=== PATIENT | male | born 1975 | race Asian ===

== ENCOUNTER 2024-03-01 15:23 | Inpatient (IN) | payer OTHER ==
[~2024-03-01] VITALS: Ht 170.2 cm; Wt 75.3 kg
[2024-03-01 15:31] VITALS: O2SAT 100
[2024-03-01 16:34] LABS: BASOPHILS % 0.7 % (0.0-2.0); HEMATOCRIT. 23.1 % (42.0-52.0); HEMOGLOBIN. 7.5 g/dL (14.0-18.0); MEAN CORPUSCULAR HEMOGLOBIN 30.5 pg (28.0-32.0); MEAN CORPUSCULAR HGB CONC 32.7 g/dL (31.0-37.0); MEAN CORPUSCULAR VOLUME 93.4 fL (80.0-94.0); MEAN PLATELET VOLUME 6.7 fl (7.4-10.4); MONOCYTES % 8.9 % (2.0-8.0); NEUTROPHILS % 67.4 % (40.0-76.0); PLATELET 324 x1000/uL (130-400); RED BLOOD CELL COUNT 2.47 mill/uL (4.7-6.1); WHITE BLOOD COUNT 7.8 x1000/uL (4.5-11.0)
[2024-03-01 16:41] LABS: CHLORIDE 111 mEq/L (98-107); SODIUM 143 mEq/L (136-145)
[2024-03-01 16:42] LABS: CALCIUM 6.2 mg/dL (8.7-10.4); CARBON DIOXIDE 24 mEq/L (21-32)
[2024-03-01 16:45] LABS: D-DIMER 1.01 mg/L FEU (<0.50); PARTIAL THROMBOPLASTIN TIME 28.2 sec (23.4-31.0); PROTHROMBIN TIME 11.3 sec (9.6-11.0)
[2024-03-01 16:47] LABS: GLUCOSE 166 mg/dL (70-105); UREA NITROGEN BLOOD 76 mg/dL (9-23)
[2024-03-01 16:49] LABS: ALANINE AMINOTRANSFERASE 18 IU/L (10-49); ALBUMIN 2.4 g/dL (3.2-4.8); ASPARTATE AMINOTRANSFERASE 33 IU/L (<34); BILIRUBIN TOTAL < 0.2 mg/dL (0.1-1.0); PROTEIN TOTAL 4.6 g/dL (6.0-8.3)
[2024-03-01 17:21] LABS: TROPONIN I HIGH SENSITIVITY 98 ng/L (3.0-53)
[2024-03-01] MEDS: FUROSEMIDE 40MG/4ML VIAL IVP ONE (18:06)
[2024-03-01] MEDS ORDERED: IPRATROPIUM/ALBUTEROL 0.5-3(2.5)MG/3ML NEB NEB PRN (18:45)
[2024-03-01] MEDS ORDERED: ONDANSETRON HCL 4MG/2ML INJ IV PRN (18:45)
[2024-03-01] MEDS ORDERED: NALOXONE HCL 0.4MG/ML VIAL IV PRN (19:00)
[2024-03-01 19:07] LABS: IRON 19 ug/dL (65-175)
[2024-03-01 19:08] LABS: TRIGLYCERIDE 199 mg/dL (0-150)
[2024-03-01 19:09] LABS: LDL CHOLESTEROL 103 mg/dL (5-100)
[2024-03-01 19:10] LABS: CHOLESTEROL 169 mg/dL (<200); HDL CHOLESTEROL 34 mg/dL (>55); TOTAL IRON BINDING CAPACITY 553 ug/dl (250-425)
[2024-03-01 20:00] VITALS: BP 160/95; PULSE 82; RESP 18; TEMP 35.72508; TEMP 35.7508; O2SAT 100
[2024-03-01] MEDS: CLONIDINE 0.1MG TABLET PO PRN (21:28)
[2024-03-01] MEDS: HEPARIN 5000 UNITS/ML VIAL SUBCUT SCH (21:28)
[2024-03-01] MEDS: FUROSEMIDE 40MG/4ML VIAL IVP SCH (23:33)
[2024-03-02] VITALS (15 sets, daily range): BP systolic 129–180; BP diastolic 75–113; PULSE 82–100; RESP 16–20; TEMP 36.22512–36.78072; O2SAT 96–100
[2024-03-02] MEDS ORDERED: FUROSEMIDE 40MG/4ML VIAL IVP SCH (09:00)
[2024-03-02] MEDS: PANTOPRAZOLE SODIUM 40 MG/VIAL IV SCH (09:01)
[2024-03-02] MEDS: LIDOCAINE HCL 1% 10 MG/ML 10ML VIAL ONE (09:15)
[2024-03-02] MEDS: FOLIC ACID/VITAMIN B COMP W-C TABLET PO SCH (09:26)
[2024-03-02 09:48] LABS: BASOPHILS % 0.5 % (0.0-2.0); EOSINOPHILS % 3.8 % (0.0-5.0); HEMATOCRIT. 27.3 % (42.0-52.0); LYMPHOCYTES % 16.5 % (20.0-50.0); MEAN CORPUSCULAR HEMOGLOBIN 30.5 pg (28.0-32.0); MEAN CORPUSCULAR HGB CONC 32.5 g/dL (31.0-37.0); MEAN CORPUSCULAR VOLUME 93.8 fL (80.0-94.0); MONOCYTES % 7.8 % (2.0-8.0); NEUTROPHILS % 71.4 % (40.0-76.0); PLATELET 391 x1000/uL (130-400); RED BLOOD CELL COUNT 2.91 mill/uL (4.7-6.1); RED CELL DISTRIBUTION WIDTH 15.2 % (11.6-14.6); WHITE BLOOD COUNT 9.8 x1000/uL (4.5-11.0)
[2024-03-02 09:52] LABS: HEMOGLOBIN. 8.9 g/dL (14.0-18.0)
[2024-03-02 10:08] LABS: CREATINE KINASE MB FRACTION 22.8 ng/mL (0.5-3.6)
[2024-03-02 10:09] LABS: CALCIUM 6.2 mg/dL (8.7-10.4)
[2024-03-02 10:32] LABS: CREATININE 9.4 mg/dL (0.6-1.3)
[2024-03-02] MEDS: CALCIUM ACETATE 667MG CAPSULE PO SCH (11:38)
[2024-03-02] MEDS ORDERED: DEXTROSE 50% WATER 50ML SYRINGE IV PRN (13:15)
[2024-03-02] MEDS ORDERED: APIX2.5T PO (13:17)
[2024-03-02] MEDS ORDERED: AMLO5TAB88 PO (13:17)
[2024-03-02] MEDS: MANNITOL 12.5G (25%) VIAL 50ML IV NR (13:30)
[2024-03-02] MEDS: ASPIRIN 81MG TABLET PO SCH (14:30)
[2024-03-02] MEDS: AMLODIPINE 5MG TABLET PO SCH (14:31)
[2024-03-02] MEDS: BLOOD SUGAR DIAGNOSTIC STRIP TEST SCH (16:40)
[2024-03-02] MEDS: INSULIN LISPRO 100 UNITS/ML SUBCUT SCH (17:10)
[2024-03-02] MEDS: ATORVASTATIN CALCIUM 40MG TABLET PO SCH (20:42)
[2024-03-02] MEDS: APIXABAN 2.5 MG TABLET PO SCH (20:43)
[2024-03-03] VITALS (15 sets, daily range): BP systolic 129–203; BP diastolic 69–124; PULSE 74–110; RESP 15–20; TEMP 36.33624–36.78072; O2SAT 97–100
[2024-03-03] MEDS: ACETAMINOPHEN 325MG TABLET PO PRN (01:24)
[2024-03-03 04:18] LABS: CLARITY URINE CLEAR (CLEAR); COLOR URINE YELLOW (YELLOW); GLUCOSE URINE 2+ (NEGATIVE); KETONES URINE TRACE (NEGATIVE); LEUKOCYTE ESTERASE URINE NEGATIVE (NEGATIVE); NITRITE URINE NEGATIVE (NEGATIVE); OCCULT BLOOD URINE 1+ (NEGATIVE); PH URINE 7.5 (4.5-8.0); PROTEIN URINE 4+ (NEGATIVE); SPECIFIC GRAVITY URINE 1.016 (1.005-1.030); UROBILINOGEN URINE 0.2 E.U./dL (0.2-1.0)
[2024-03-03 04:34] LABS: *AMPHETAMINES SCREEN URINE NEGATIVE (NEGATIVE); *BARBITURATES SCREEN URINE NEGATIVE (NEGATIVE); *BENZODIAZEPINES SCREEN URINE NEGATIVE (NEGATIVE); *COCAINE SCREEN URINE NEGATIVE (NEGATIVE)
[2024-03-03 04:35] LABS: CANNABINOID URINE SCREEN NEGATIVE (NEGATIVE); ECSTASY MDMA SCREEN URINE NEGATIVE (NEGATIVE); METHADONE URINE SCREEN NEGATIVE (NEGATIVE); OPIATES URINE SCREEN NEGATIVE (NEGATIVE); PHENCYCLIDINE URINE SCREEN NEGATIVE (NEGATIVE)
[2024-03-03 05:42] LABS: SQUAMOUS EPITHELIAL CELL URINE NONE SEEN /lpf (RARE/1+)
[2024-03-03 05:43] LABS: BACTERIA URINE NONE SEEN; RBC URINE 0-2 /hpf (0-2); WBC URINE 0-2 /hpf (0-2)
[2024-03-03 11:40] LABS: BASOPHILS % 0.6 % (0.0-2.0); EOSINOPHILS % 4.8 % (0.0-5.0); HEMATOCRIT. 28.1 % (42.0-52.0); HEMOGLOBIN. 9.4 g/dL (14.0-18.0); LYMPHOCYTES % 16.8 % (20.0-50.0); MEAN CORPUSCULAR HEMOGLOBIN 30.5 pg (28.0-32.0); MEAN CORPUSCULAR HGB CONC 33.3 g/dL (31.0-37.0); MEAN CORPUSCULAR VOLUME 91.8 fL (80.0-94.0); MEAN PLATELET VOLUME 6.8 fl (7.4-10.4); MONOCYTES % 7.2 % (2.0-8.0); NEUTROPHILS % 70.6 % (40.0-76.0); PLATELET 414 x1000/uL (130-400); RED BLOOD CELL COUNT 3.06 mill/uL (4.7-6.1); RED CELL DISTRIBUTION WIDTH 14.5 % (11.6-14.6); WHITE BLOOD COUNT 8.8 x1000/uL (4.5-11.0)
[2024-03-03] MEDS: POLYVINYL ALCOHOL OPHTH DROPS 15ML BOTHEYE PRN (14:51)
[2024-03-03 17:15] LABS: POTASSIUM 4.2 mEq/L (3.5-5.1)
[2024-03-03 17:16] LABS: CALCIUM 6.4 mg/dL (8.7-10.4)
[2024-03-03 17:37] LABS: CREATININE 7.1 mg/dL (0.6-1.3)
[2024-03-04] VITALS (12 sets, daily range): BP systolic 124–200; BP diastolic 65–116; PULSE 89–110; RESP 15–20; TEMP 36.16956–37.00296; O2SAT 97–100
[2024-03-04] MEDS: FAMOTIDINE 20MG/2ML VIAL IV SCH (09:50)
[2024-03-04 22:34] LABS: HEPATITIS B SURFACE ANTIGEN NEGATIVE (Negative)
[2024-03-04 22:55] LABS: HEPATITIS A AB IGM NEGATIVE (Negative); HEPATITIS B CORE AB IGM NEGATIVE (Negative)
[2024-03-04 22:56] LABS: HEPATITIS C AB NON REACTIVE (Neg) (Negative)
[2024-03-05] VITALS: BP 163/101; PULSE 99; RESP 22; TEMP 36.3918; O2SAT 98
[2024-03-05 04:00] VITALS: BP 150/92; PULSE 96; RESP 18; TEMP 36.28068; O2SAT 97
[2024-03-05 08:00] VITALS: BP 170/105; PULSE 99; RESP 20; TEMP 36.50292; O2SAT 98
[2024-03-05 12:00] VITALS: BP 155/65; PULSE 98; RESP 20; TEMP 36.44736; O2SAT 98
[2024-03-05 16:00] VITALS: BP 139/67; PULSE 97; RESP 18; TEMP 36.61404; O2SAT 97
[2024-03-05 20:00] VITALS: BP 122/61; PULSE 94; RESP 17; TEMP 36.89184; O2SAT 98
[2024-03-06] VITALS: BP 125/68; PULSE 76; RESP 18; TEMP 36.78072; O2SAT 98
[2024-03-06 04:00] VITALS: BP 122/78; PULSE 85; RESP 17; TEMP 36.3918; O2SAT 98
[2024-03-06] MEDS: HYDROCODONE/ACETAMINOPHEN 5/325MG TABLET PO PRN (06:30)
[2024-03-06 08:00] VITALS: BP 175/108; PULSE 97; RESP 18; TEMP 36.44736; O2SAT 96
[2024-03-06 12:00] VITALS: BP 155/97; PULSE 98; RESP 19; TEMP 36.3918; O2SAT 98
[2024-03-06 16:00] VITALS: BP 172/111; PULSE 98; RESP 19; TEMP 36.3918; O2SAT 98
[2024-03-06 20:00] VITALS: BP 141/88; PULSE 95; RESP 18; TEMP 36.50292; O2SAT 95
[2024-03-07] VITALS (17 sets, daily range): BP systolic 148–172; BP diastolic 90–105; PULSE 94–107; RESP 16–20; TEMP 36.33624–36.78072; O2SAT 96–100
[2024-03-08] VITALS: BP 165/105; PULSE 104; RESP 19; TEMP 36.72516; O2SAT 97
[2024-03-08 04:00] VITALS: BP 163/101; PULSE 102; RESP 18; TEMP 36.3918; O2SAT 99
[2024-03-08 07:08] LABS: BASOPHILS % 0.4 % (0.0-2.0); EOSINOPHILS % 3.5 % (0.0-5.0); HEMATOCRIT. 25.6 % (42.0-52.0); HEMOGLOBIN. 8.5 g/dL (14.0-18.0); LYMPHOCYTES % 16.7 % (20.0-50.0); MEAN CORPUSCULAR HEMOGLOBIN 29.8 pg (28.0-32.0); MEAN CORPUSCULAR VOLUME 90.2 fL (80.0-94.0); MEAN PLATELET VOLUME 6.6 fl (7.4-10.4); MONOCYTES % 7.6 % (2.0-8.0); NEUTROPHILS % 71.8 % (40.0-76.0); PLATELET 374 x1000/uL (130-400); RED BLOOD CELL COUNT 2.84 mill/uL (4.7-6.1); RED CELL DISTRIBUTION WIDTH 14.1 % (11.6-14.6)
[2024-03-08 07:24] LABS: CHLORIDE 108 mEq/L (98-107); POTASSIUM 4.5 mEq/L (3.5-5.1); SODIUM 141 mEq/L (136-145)
[2024-03-08 07:25] LABS: CALCIUM 7.4 mg/dL (8.7-10.4); CARBON DIOXIDE 27 mEq/L (21-32)
[2024-03-08 07:29] LABS: GLUCOSE 134 mg/dL (70-105)
[2024-03-08 07:30] LABS: UREA NITROGEN BLOOD 35 mg/dL (9-23)
[2024-03-08 07:32] LABS: PHOSPHORUS 4.8 mg/dL (2.5-4.9)
[2024-03-08 08:00] VITALS: BP 181/111; PULSE 105; RESP 20; TEMP 36.50292; O2SAT 100
[2024-03-08 08:11] LABS: CREATININE 6.8 mg/dL (0.6-1.3)
[2024-03-08] MEDS ORDERED: NALOXONE HCL 0.4MG/ML VIAL IV PRN (10:45)
[2024-03-08 12:00] VITALS: BP 156/95; PULSE 101; RESP 19; TEMP 36.61404; O2SAT 98
[2024-03-08] MEDS ORDERED: LIDOCAINE HCL/EPINEPHRINE 1%-EPI 1:100,000 20ML VIAL ONE (12:24)
[2024-03-08] MEDS ORDERED: LIDOCAINE HCL 1% 10 MG/ML 10ML VIAL ONE (12:24)
[2024-03-08] MEDS: MORPHINE SULFATE 2 MG/ML INJ (NOT FOR IM USE) IV PRN (12:41)
[2024-03-08] MEDS ORDERED: HEPARIN 1000 UNITS/ML 10ML ONE (13:15)
[2024-03-08] MEDS: MAGNESIUM 2 G PREMIX 50 ML IV NR (14:20)
[2024-03-08 16:00] VITALS: BP 152/96; PULSE 100; RESP 19; TEMP 36.50292; O2SAT 100
[2024-03-08 20:00] VITALS: BP 153/98; PULSE 98; RESP 18; TEMP 36.61404; O2SAT 100
[2024-03-09] VITALS (10 sets, daily range): BP systolic 144–189; BP diastolic 53–103; PULSE 84–101; RESP 18–20; TEMP 36.44736–36.78072; O2SAT 97–100
[2024-03-09] MEDS ORDERED: LIP40 PO (10:38)
[2024-03-09] MEDS ORDERED: CALC667C PO (10:38)
[2024-03-09] MEDS ORDERED: ASPI-1160 PO (10:38)
[2024-03-09] MEDS ORDERED: FOLI0.8T53 PO (10:38)
[2024-03-09] MEDS: DOCUSATE SODIUM SUGAR FREE 100MG/10ML UDC NG SCH (18:42)
[2024-03-10] VITALS: BP 136/84; PULSE 96; RESP 20; TEMP 36.72516; O2SAT 98
[2024-03-10 08:00] VITALS: BP 167/103; PULSE 115; RESP 20; TEMP 36.3918; O2SAT 98
[2024-03-10] MEDS: AMLODIPINE 10MG TABLET PO SCH (09:50)
[2024-03-10 12:00] VITALS: BP 181/111; PULSE 126; RESP 18; TEMP 36.33624; O2SAT 95
[2024-03-10 13:52] LABS: BASOPHILS % 0.2 % (0.0-2.0); EOSINOPHILS % 1.7 % (0.0-5.0); HEMATOCRIT. 32.6 % (42.0-52.0); HEMOGLOBIN. 10.4 g/dL (14.0-18.0); LYMPHOCYTES % 7.1 % (20.0-50.0); MEAN CORPUSCULAR HEMOGLOBIN 29.1 pg (28.0-32.0); MEAN PLATELET VOLUME 6.3 fl (7.4-10.4); MONOCYTES % 4.8 % (2.0-8.0); NEUTROPHILS % 86.2 % (40.0-76.0); PLATELET 426 x1000/uL (130-400); RED BLOOD CELL COUNT 3.58 mill/uL (4.7-6.1); RED CELL DISTRIBUTION WIDTH 14.2 % (11.6-14.6); WHITE BLOOD COUNT 17.6 x1000/uL (4.5-11.0)
[2024-03-10 14:33] LABS: POTASSIUM 4.7 mEq/L (3.5-5.1)
[2024-03-10 14:42] LABS: CREATININE 6.9 mg/dL (0.6-1.3)
[2024-03-10] MEDS: VANCOMYCIN 1.25GM PMX (XELLIA) 250 ML IV NR (15:00)
[2024-03-10 16:00] VITALS: BP 128/79; PULSE 110; RESP 20; TEMP 38.50308; O2SAT 95
[2024-03-10] MEDS: SODIUM CHLORIDE 0.9% 250 ML IV NR (19:07)
[2024-03-10 20:00] VITALS: BP 130/77; PULSE 105; RESP 20; TEMP 37.11408; O2SAT 97
[2024-03-10] MEDS: PIPERACILLIN/TAZO 3.375G/100ML 100 ML IV SCH (20:28)
[2024-03-11] VITALS (12 sets, daily range): BP systolic 105–137; BP diastolic 65–86; PULSE 71–116; RESP 16–20; TEMP 36.6696–38.00304; O2SAT 89–99
[2024-03-11] MEDS ORDERED: VANCOMYCIN 500MG PREMIX 100 ML IV SCH (11:00)
[2024-03-11] MEDS ORDERED: SODIUM CHLORIDE 0.9% 250 ML IV ONE (19:00)
[2024-03-12] VITALS: BP 115/73; PULSE 108; RESP 20; TEMP 36.72516; O2SAT 99
[2024-03-12 04:00] VITALS: BP 123/74; PULSE 104; RESP 18; TEMP 36.22512; O2SAT 100
[2024-03-12] MEDS ORDERED: LIDOCAINE HCL 1% 10 MG/ML 10ML VIAL ONE (07:51)
[2024-03-12 08:00] VITALS: BP 123/76; PULSE 108; RESP 18; TEMP 36.50292; O2SAT 100
[2024-03-12 08:48] LABS: POTASSIUM 4.4 mEq/L (3.5-5.1)
[2024-03-12 08:49] LABS: CALCIUM 7.8 mg/dL (8.7-10.4)
[2024-03-12 08:51] LABS: BASOPHILS % 0.3 % (0.0-2.0); EOSINOPHILS % 1.6 % (0.0-5.0); HEMATOCRIT. 26.8 % (42.0-52.0); HEMOGLOBIN. 8.8 g/dL (14.0-18.0); LYMPHOCYTES % 9.5 % (20.0-50.0); MEAN CORPUSCULAR HGB CONC 32.9 g/dL (31.0-37.0); MEAN CORPUSCULAR VOLUME 91.3 fL (80.0-94.0); MEAN PLATELET VOLUME 6.9 fl (7.4-10.4); MONOCYTES % 9.3 % (2.0-8.0); NEUTROPHILS % 79.3 % (40.0-76.0); PLATELET 330 x1000/uL (130-400); RED BLOOD CELL COUNT 2.93 mill/uL (4.7-6.1); WHITE BLOOD COUNT 14.9 x1000/uL (4.5-11.0)
[2024-03-12 08:59] LABS: CREATININE 7.3 mg/dL (0.6-1.3)
[2024-03-12 12:00] VITALS: BP 130/84; PULSE 106; RESP 18; TEMP 36.6696; O2SAT 99
[2024-03-12] MEDS: VANCOMYCIN 750MG PREMIX 150 ML IV SCH (14:17)
[2024-03-12 16:00] VITALS: BP 126/74; PULSE 101; RESP 19; TEMP 36.28068; O2SAT 98
[2024-03-12 20:00] VITALS: BP 144/92; PULSE 106; RESP 18; TEMP 36.3918; O2SAT 95
[2024-03-13] VITALS: BP 153/94; PULSE 105; RESP 20; TEMP 36.33624; O2SAT 94
[2024-03-13 04:00] VITALS: BP 144/87; PULSE 105; RESP 16; TEMP 36.72516; O2SAT 94
[2024-03-13 08:00] VITALS: BP 127/79; PULSE 100; RESP 17; TEMP 37.00296; O2SAT 99
[2024-03-13 10:34] LABS: BASOPHILS % 0.5 % (0.0-2.0); EOSINOPHILS % 3.6 % (0.0-5.0); HEMATOCRIT. 25.9 % (42.0-52.0); HEMOGLOBIN. 8.2 g/dL (14.0-18.0); LYMPHOCYTES % 15.3 % (20.0-50.0); MEAN CORPUSCULAR HEMOGLOBIN 28.9 pg (28.0-32.0); MEAN CORPUSCULAR HGB CONC 31.9 g/dL (31.0-37.0); MEAN CORPUSCULAR VOLUME 90.6 fL (80.0-94.0); MEAN PLATELET VOLUME 6.6 fl (7.4-10.4); MONOCYTES % 10.3 % (2.0-8.0); NEUTROPHILS % 70.3 % (40.0-76.0); PLATELET 365 x1000/uL (130-400); RED BLOOD CELL COUNT 2.85 mill/uL (4.7-6.1); RED CELL DISTRIBUTION WIDTH 14.2 % (11.6-14.6); WHITE BLOOD COUNT 11.6 x1000/uL (4.5-11.0)
[2024-03-13 10:41] LABS: POTASSIUM 4.5 mEq/L (3.5-5.1)
[2024-03-13 10:43] LABS: CALCIUM 7.9 mg/dL (8.7-10.4)
[2024-03-13 11:22] LABS: CREATININE 7.7 mg/dL (0.6-1.3)
[2024-03-13 12:00] VITALS: BP 129/78; PULSE 100; RESP 17; TEMP 37.05852; O2SAT 95
[2024-03-13 16:00] VITALS: BP 122/71; PULSE 102; RESP 17; TEMP 37.503; O2SAT 98
[2024-03-13 20:00] VITALS: BP 132/82; PULSE 105; RESP 19; TEMP 37.00296; O2SAT 96
[2024-03-14] VITALS (13 sets, daily range): BP systolic 136–153; BP diastolic 76–99; PULSE 103–111; RESP 16–20; TEMP 36.50292–37.11408; O2SAT 97–99
[2024-03-14] MEDS: DOCUSATE SODIUM SUGAR FREE 100MG/10ML UDC PO SCH (09:20)
[2024-03-14] MEDS: CEFAZOLIN 1000MG PREMIX 50 ML IV SCH (13:06)
[2024-03-15] VITALS: BP 148/90; PULSE 108; RESP 20; TEMP 36.61404; O2SAT 99
[2024-03-15 04:00] VITALS: BP 122/72; PULSE 106; RESP 18; TEMP 36.55848; O2SAT 96
[2024-03-15 08:00] VITALS: BP 159/97; PULSE 107; RESP 18; TEMP 36.3918; O2SAT 99
[2024-03-15 12:00] VITALS: BP 138/85; PULSE 104; RESP 18; TEMP 36.44736; O2SAT 96
== END 2024-03-15 16:10 | disposition home or self-care (01) | DRG 720 ==
LOC: ER 15:23 → 5WST 17:40 → EDBEDREQTM 17:45 → EDBEDREQ 17:45 → 7EST 03-02 10:34
PROVIDERS: ADMIT Internal Medicine; ATTEND Internal Medicine
PROC: 02HV33Z Insertion of Infusion Device into Superior Vena Cava, Percutaneous Approach (ICD-10-PCS; principal; 2024-03-02)
PROC: B518ZZA Fluoroscopy of Superior Vena Cava, Guidance (ICD-10-PCS; 2024-03-02)
PROC: B548ZZA Ultrasonography of Superior Vena Cava, Guidance (ICD-10-PCS; 2024-03-02)
PROC: 5A1D70Z Performance of Urinary Filtration, Intermittent, Less than 6 Hours Per Day (ICD-10-PCS; 2024-03-02)
PROC: 5A1D70Z Performance of Urinary Filtration, Intermittent, Less than 6 Hours Per Day (ICD-10-PCS; 2024-03-03)
PROC: 5A1D70Z Performance of Urinary Filtration, Intermittent, Less than 6 Hours Per Day (ICD-10-PCS; 2024-03-04)
PROC: 5A1D70Z Performance of Urinary Filtration, Intermittent, Less than 6 Hours Per Day (ICD-10-PCS; 2024-03-07)
PROC: 0JH63XZ Insertion of Tunneled Vascular Access Device into Chest Subcutaneous Tissue and Fascia, Percutaneous Approach (ICD-10-PCS; 2024-03-08)
PROC: 02HV33Z Insertion of Infusion Device into Superior Vena Cava, Percutaneous Approach (ICD-10-PCS; 2024-03-08)
PROC: B518ZZA Fluoroscopy of Superior Vena Cava, Guidance (ICD-10-PCS; 2024-03-08)
PROC: B548ZZA Ultrasonography of Superior Vena Cava, Guidance (ICD-10-PCS; 2024-03-08)
PROC: 5A1D70Z Performance of Urinary Filtration, Intermittent, Less than 6 Hours Per Day (ICD-10-PCS; 2024-03-09)
PROC: 5A1D70Z Performance of Urinary Filtration, Intermittent, Less than 6 Hours Per Day (ICD-10-PCS; 2024-03-11)
PROC: 5A1D70Z Performance of Urinary Filtration, Intermittent, Less than 6 Hours Per Day (ICD-10-PCS; 2024-03-14)
DX: A41.01 Sepsis due to Methicillin susceptible Staphylococcus aureus (principal); J96.01 Acute respiratory failure with hypoxia; I50.33 Acute on chronic diastolic (congestive) heart failure; N17.9 Acute kidney failure, unspecified; D63.1 Anemia in chronic kidney disease; E11.319 Type 2 diabetes mellitus with unspecified diabetic retinopathy without macular edema; N18.6 End stage renal disease; Z20.822 Contact with and (suspected) exposure to COVID-19; E11.22 Type 2 diabetes mellitus with diabetic chronic kidney disease; E87.5 Hyperkalemia; E78.00 Pure hypercholesterolemia, unspecified; I13.2 Hypertensive heart and chronic kidney disease with heart failure and with stage 5 chronic kidney disease, or end stage renal disease; Z90.5 Acquired absence of kidney; Z99.2 Dependence on renal dialysis; Z88.2 Allergy status to sulfonamides; Z87.441 Personal history of nephrotic syndrome
CPT/HCPCS: 36415; 36556; 36558; 36589; 71045; 76770; 77001; 80048; 80053; 80061; 80305; 81003; 82550; 82553; 82962; 83036; 83540; 83550; 83735; 83880; 84100; 84145; 84484; 85025; 85379; 86705; 86706; 86709; 86850; 86900; 87077; 87186; 87340; 87426; 87804; 90935; 93005; 93306; 93970; 93971; 99285; C1750; C1752; C1769; C1893; J0690; J1644; J1815; J1940; J2150; J2270; J2470; J2543; J3370; J3475; J3490

== ENCOUNTER 2024-06-27 18:12 | Inpatient (IN) | payer MEDICAID, OTHER ==
[~2024-06-27] VITALS: Ht 167.6 cm; Wt 63.5 kg
[~2024-06-27 18:12] MED LIST: AMLO5TAB88 PO; APIX2.5T PO; ASPI-1160 PO; CALC667C PO; FOLI0.8T53 PO; LIP40 PO
[2024-06-27 19:31] LABS: HEMATOCRIT. 26.1 % (42.0-52.0); HEMOGLOBIN. 8.3 g/dL (14.0-18.0); MEAN CORPUSCULAR HEMOGLOBIN 30.6 pg (28.0-32.0); MEAN CORPUSCULAR HGB CONC 31.9 g/dL (31.0-37.0); MEAN CORPUSCULAR VOLUME 95.7 fL (80.0-94.0); PLATELET 328 x1000/uL (130-400); RED BLOOD CELL COUNT 2.73 mill/uL (4.7-6.1); RED CELL DISTRIBUTION WIDTH 15.8 % (11.6-14.6); WHITE BLOOD COUNT 14.3 x1000/uL (4.5-11.0)
[2024-06-27 19:34] LABS: DIFFERENTIAL COMMENT 1
[2024-06-27 19:40] LABS: CHLORIDE 91 mEq/L (98-107); POTASSIUM 4.2 mEq/L (3.5-5.1); SODIUM 133 mEq/L (136-145)
[2024-06-27 19:41] LABS: CALCIUM 8.6 mg/dL (8.7-10.4); CARBON DIOXIDE 31 mEq/L (21-32)
[2024-06-27 19:46] LABS: UREA NITROGEN BLOOD 64 mg/dL (9-23)
[2024-06-27 20:24] LABS: CREATININE 4.9 mg/dL (0.6-1.3); GLUCOSE 350 mg/dL (70-105)
[2024-06-27 20:25] LABS: TROPONIN I HIGH SENSITIVITY 87 ng/L (3.0-53)
[2024-06-27] MEDS ORDERED: LISINOPRIL 40MG TABLET PO NR (21:30)
[2024-06-27] MEDS: LISINOPRIL 10MG TABLET PO NR (22:30)
[2024-06-27] MEDS: AMLODIPINE 5MG TABLET PO NR (22:30)
[2024-06-27 22:40] LABS: ANISOCYTOSIS 1+; PLATELET ESTIMATE NORMAL
[2024-06-28 08:00] VITALS: BP 147/89; PULSE 107; RESP 17; TEMP 36.5; O2SAT 96
[2024-06-28 08:10] VITALS: BP 128/64; PULSE 98; RESP 18; TEMP 36.4
[2024-06-28 11:36] VITALS: BP 136/78; PULSE 95; RESP 18; TEMP 36.4; O2SAT 98
[2024-06-28] MEDS: BLOOD SUGAR DIAGNOSTIC STRIP TEST SCH (11:43)
[2024-06-28] MEDS ORDERED: DEXTROSE 50% WATER 50ML SYRINGE IV PRN (11:45)
[2024-06-28] MEDS ORDERED: IPRATROPIUM/ALBUTEROL 0.5-3(2.5)MG/3ML NEB HHN PRN (11:45)
[2024-06-28] MEDS: AMLODIPINE 10MG TABLET PO SCH (11:51)
[2024-06-28] MEDS: INSULIN LISPRO 100 UNITS/ML SUBCUT SCH (11:53)
[2024-06-28 12:00] VITALS: BP 136/78; PULSE 95; RESP 18; TEMP 36.4; O2SAT 98
[2024-06-28] MEDS: ACETAMINOPHEN 325MG TABLET PO PRN (12:41)
[2024-06-28] MEDS: CEFTRIAXONE 1GM/50ML 50 ML IV SCH (13:21)
[2024-06-28] MEDS: VANCOMYCIN 1.5GM/250ML IV NR (13:21)
[2024-06-28 16:00] VITALS: BP 124/65; PULSE 85; RESP 17; RESP 18; TEMP 36.3; TEMP 36.4; O2SAT 96
[2024-06-28 20:00] VITALS: BP 150/92; PULSE 99; RESP 19; TEMP 35.8; O2SAT 100
[2024-06-28 23:32] LABS: INFLUENZA TYPE A Presumptive Negative (Pres. Neg.); INFLUENZA TYPE B Presumptive Negative (Pres. Neg.)
[2024-06-29] VITALS (10 sets, daily range): BP systolic 115–148; BP diastolic 66–84; PULSE 74–104; RESP 18–20; TEMP 36.1–36.6696; O2SAT 95–99
[2024-06-29] MEDS: DIPHENHYDRAMINE 50MG CAPSULE PO PRN (05:51)
[2024-06-29 09:53] LABS: CLARITY URINE CLEAR (CLEAR); COLOR URINE YELLOW (YELLOW); GLUCOSE URINE 2+ (NEGATIVE); KETONES URINE TRACE (NEGATIVE); LEUKOCYTE ESTERASE URINE NEGATIVE (NEGATIVE); NITRITE URINE NEGATIVE (NEGATIVE); OCCULT BLOOD URINE TRACE (NEGATIVE); PROTEIN URINE 4+ (NEGATIVE); SPECIFIC GRAVITY URINE 1.028 (1.005-1.030); UROBILINOGEN URINE 0.2 E.U./dL (0.2-1.0)
[2024-06-29 10:15] LABS: HYALINE CASTS URINE 0-5 /lpf; SQUAMOUS EPITHELIAL CELL URINE FEW /lpf (RARE/1+)
[2024-06-29 10:16] LABS: BACTERIA URINE NONE SEEN; RBC URINE 0-2 /hpf (0-2); WBC URINE 0-2 /hpf (0-2)
[2024-06-29 13:04] LABS: MEAN CORPUSCULAR HGB CONC 33.3 g/dL (31.0-37.0); MEAN CORPUSCULAR VOLUME 96.1 fL (80.0-94.0); PLATELET 301 x1000/uL (130-400); RED CELL DISTRIBUTION WIDTH 16.4 % (11.6-14.6); WHITE BLOOD COUNT 11.5 x1000/uL (4.5-11.0)
[2024-06-29 13:14] LABS: DIFFERENTIAL COMMENT 1
[2024-06-29 13:23] LABS: POTASSIUM 3.4 mEq/L (3.5-5.1)
[2024-06-29 13:24] LABS: CALCIUM 8.4 mg/dL (8.7-10.4)
[2024-06-29 13:29] LABS: CREATININE 4.8 mg/dL (0.6-1.3)
[2024-06-29 21:52] LABS: ANISOCYTOSIS 1+; PLATELET ESTIMATE NORMAL
[2024-06-30] VITALS (8 sets, daily range): BP systolic 104–147; BP diastolic 64–86; PULSE 73–104; RESP 18–19; TEMP 36.114–36.6; O2SAT 97–98
== END 2024-06-30 14:15 | disposition home or self-care (01) | DRG 720 ==
LOC: ER 18:12 → 6WST 22:03
PROVIDERS: ADMIT Internal Medicine; ATTEND Internal Medicine
PROC: 5A1D70Z Performance of Urinary Filtration, Intermittent, Less than 6 Hours Per Day (ICD-10-PCS; principal; 2024-06-29)
PROC: 5A1D70Z Performance of Urinary Filtration, Intermittent, Less than 6 Hours Per Day (ICD-10-PCS; 2024-06-30)
DX: A41.9 Sepsis, unspecified organism (principal); J96.00 Acute respiratory failure, unspecified whether with hypoxia or hypercapnia; I13.2 Hypertensive heart and chronic kidney disease with heart failure and with stage 5 chronic kidney disease, or end stage renal disease; N18.6 End stage renal disease; D63.1 Anemia in chronic kidney disease; E11.319 Type 2 diabetes mellitus with unspecified diabetic retinopathy without macular edema; E11.22 Type 2 diabetes mellitus with diabetic chronic kidney disease; Z20.822 Contact with and (suspected) exposure to COVID-19; D64.9 Anemia, unspecified; I50.9 Heart failure, unspecified; E78.00 Pure hypercholesterolemia, unspecified; Z99.2 Dependence on renal dialysis; Z88.2 Allergy status to sulfonamides
CPT/HCPCS: 36415; 71045; 80048; 80202; 81003; 82962; 84145; 84484; 85025; 87426; 87804; 90935; 93005; 99285; J0696; J1815; J3370; Q0163

== ENCOUNTER 2024-10-18 15:48 | Emergency (ER) | payer MEDICAID ==
[~2024-10-18] VITALS: Ht 177.8 cm; Wt 67.0 kg
[~2024-10-18 15:48] MED LIST changes: +AMLO10TA80 PO; -AMLO5TAB88 PO; +ATOR20TA65 PO; +BACL-141 PO; +CARV12.545 MT; +DAPA10TA PO; +FURO80TA3 PO; +HYDR-4001 PO; +INSU100I13 SQ; +INSU100I28 SQ; +LIDOCAINE 5% PATCH TOP; -LIP40 PO; +LORA10TA7 PO
[2024-10-18 15:58] VITALS: O2SAT 97
[2024-10-18 16:01] VITALS: BP 192/117; PULSE 102; RESP 20; TEMP 36.7; O2SAT 96
[2024-10-18 17:43] LABS: BASOPHILS % 0.5 % (0.0-2.0); EOSINOPHILS % 7.6 % (0.0-5.0); HEMATOCRIT. 29.4 % (42.0-52.0); HEMOGLOBIN. 9.4 g/dL (14.0-18.0); LYMPHOCYTES % 10.8 % (20.0-50.0); MEAN PLATELET VOLUME 7.3 fl (7.4-10.4); MONOCYTES % 9.7 % (2.0-8.0); NEUTROPHILS % 71.4 % (40.0-76.0); PLATELET 207 x1000/uL (130-400); RED BLOOD CELL COUNT 3.08 mill/uL (4.7-6.1); RED CELL DISTRIBUTION WIDTH 19.2 % (11.6-14.6)
[2024-10-18 18:01] LABS: UREA NITROGEN BLOOD 64.0 mg/dL (9-23)
[2024-10-18 18:24] LABS: CREATININE 6.7 mg/dL (0.6-1.3)
[2024-10-18] MEDS ORDERED: SODIUM CHLORIDE 0.9% 1,000 ML IV ONE (18:45)
== END 2024-10-18 19:59 | disposition left against medical advice (07) ==
LOC: EDBD → ER 15:48
DX: I10 Essential (primary) hypertension (principal); E11.65 Type 2 diabetes mellitus with hyperglycemia; E78.00 Pure hypercholesterolemia, unspecified; I16.0 Hypertensive urgency; E87.6 Hypokalemia; Z79.01 Long term (current) use of anticoagulants; Z79.4 Long term (current) use of insulin; Z79.82 Long term (current) use of aspirin; Z79.84 Long term (current) use of oral hypoglycemic drugs; Z79.899 Other long term (current) drug therapy; Z99.2 Dependence on renal dialysis; Z88.2 Allergy status to sulfonamides
CPT/HCPCS: 36415; 80048; 82010; 85025; 93005; 99284; J7030

== ENCOUNTER 2024-10-28 07:24 | Emergency (ER) | payer MEDICAID ==
[~2024-10-28] VITALS: Ht 177.8 cm; Wt 67.0 kg
[2024-10-28 07:37] VITALS: BP 145/87; TEMP 36.7; O2SAT 97
[2024-10-28 07:43] VITALS: PULSE 76; RESP 18; O2SAT 100
[2024-10-28] MEDS: ACETAMINOPHEN 325MG TABLET PO ONE (08:10)
[2024-10-28] MEDS ORDERED: FLUT9.9S BOTHNSTRLS (09:14)
[2024-10-28] MEDS ORDERED: TOPUD PO (09:14)
[2024-10-28] MEDS: IBUPROFEN 400MG TABLET PO ONE (09:32)
== END 2024-10-28 09:33 | disposition home or self-care (01) ==
LOC: ER 07:24
DX: J32.9 Chronic sinusitis, unspecified (principal); E11.9 Type 2 diabetes mellitus without complications; E78.00 Pure hypercholesterolemia, unspecified; I10 Essential (primary) hypertension; Z79.01 Long term (current) use of anticoagulants; Z79.4 Long term (current) use of insulin; Z79.82 Long term (current) use of aspirin; Z79.84 Long term (current) use of oral hypoglycemic drugs; Z79.899 Other long term (current) drug therapy; Z99.2 Dependence on renal dialysis; Z20.822 Contact with and (suspected) exposure to COVID-19; Z88.2 Allergy status to sulfonamides
CPT/HCPCS: 87070; 87426; 87430; 99282; 99283